=== PATIENT | female | born 1985 | race Caucasian/White ===

== ENCOUNTER 2020-11-06 00:11 | Emergency (ER) | payer BC ==
[2020-11-06] MEDS ORDERED: diphenhydrAMINE 25 MG Cap PO ONE (00:32)
--- NOTE | 2020-11-06 00:34 | EDM.PDOC ---
ED HPI GENERAL MEDICAL PROBLEM - General Chief Complaint: Allergic Reaction Stated Complaint: REACTION TO MEDS Time Seen by Provider: 11/06/20 00:29 Source of Information: Reports: Patient, RN Notes Reviewed History Limitations: Reports: No Limitations - History of Present Illness INITIAL COMMENTS - FREE TEXT/NARRATIVE: 35-year-old female presents emergency department with a complaint of allergic reaction, she is complaining of itchiness as well as some scratchiness in the back of her throat no difficulty breathing she restarted medications of prednisone a azithromycin she has a history of recent diagnosis of pneumonia does use albuterol yesterday when she took her albuterol neb after taking these medications she felt a little bit off but no reaction like today she took the meds this morning and then approximately 12 hours later now she has a reaction Treatments 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: Other (see below) Other Treatments CHIROPRACTIC ASSISTANT: Benadryl 10mg - Related Data Allergies Allergy/AdvReac Type Severity Reaction Status Date / Time No Known Allergies Allergy Verified 11/06/20 00:23 Home Meds: Home Meds Albuterol Sulfate [Albuterol Sulfate Hfa] 8.5 gm IH ASDIRECTED 11/06/20 [History] Azithromycin 250 mg PO DAILY 11/06/20 [History] predniSONE [Prednisone] 10 mg PO BID 11/06/20 [History] Past Medical History 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: Dysfunctional Uterine Bleeding, , Spontaneous Endocrine/Metabolic History: Reports: Obesity/BMI 30+ Dermatologic History: Reports: Cellulitis - Infectious Disease History Infectious Disease History: Reports: Chicken Pox - Past Surgical History HEENT Surgical History: Reports: Adenoidectomy, Tonsillectomy Female Surgical History: Reports: D&C Social & Family History - Tobacco Use Tobacco Use Status *Q: Never Tobacco User - Caffeine Use Caffeine Use: Reports: Coffee - Recreational Drug Use Recreational Drug Use: No ED ROS ALLERGIC REACTION - Review of Systems Review Of Systems: See Below Constitutional: Reports: No Symptoms HEENT: Reports: Throat Swelling Respiratory: Reports: No Symptoms Cardiovascular: Reports: No Symptoms GI/Abdominal: Reports: No Symptoms ED EXAM GENERAL NO PERIP PULSE - Physical Exam Exam: See Below Exam Limited By: No Limitations General Appearance: Alert, WD/WN, No Apparent Distress Throat/Mouth: Normal Inspection, Normal Lips, Normal Teeth, Normal Gums, Normal Oropharynx, Normal Voice, No Airway Compromise Neck: Normal Inspection, Supple, Non-Tender, Full Range of Motion Respiratory/Chest: No Respiratory Distress, Lungs Clear, Normal Breath Sounds, No Accessory Muscle Use, Chest Non-Tender Cardiovascular: Regular Rate, Rhythm, No Murmur Course - Vital Signs Last Recorded V/S: Last Vital Signs Temp 97.5 F 11/06/20 00:28 Pulse 81 11/06/20 00:28 Resp 16 11/06/20 00:28 BP 117/74 11/06/20 00:28 Pulse Ox 98 11/06/20 00:28 - Orders/Labs/Meds Meds: Medications Discontinued Medications Generic Name Dose Route Start Last Admin Trade Name Emerita PRN Reason Stop Dose Admin Diphenhydramine HCl 50 mg 11/06/20 00:32 11/06/20 00:36 Benadryl PO 11/06/20 00:33 50 mg ONETIME ONE Administration Departure - Departure Time of Disposition: 01:05 Disposition: Home, Self-Care 01 Condition: Fair Clinical Impression: Allergic reaction Qualifiers: Encounter type: initial encounter Qualified Code(s): T78.40XA - Allergy, unspecified, initial encounter - Discharge Information Instructions: Allergies, Adult, [id number], Anaphylactic Reaction, Adult Referrals: PCP,None [Primary Care Provider] - Forms: ED Department Discharge Additional Instructions: Recommend stop using the albuterol unless needed to stop the prednisone, complete the course of azithromycin but recommend taking 25 mg of Benadryl 30 minutes prior to taking that medication, please followup with your primary care provider in 3-5 days if not better, please call return to the emergency department with worsening of symptoms. Sepsis Event Note (ED) - Evaluation Sepsis Screening Result: No Definite Risk - Focused Exam Vital Signs: Vital Signs Temp Pulse Resp BP Pulse Ox 11/06/20 00:28 97.5 F 81 16 117/74 98 - Assessment/Plan Plan: Assessment Acuity = acute Site and laterality = allergic reaction Etiology = unknown possible medication Manifestations = pruritus now resolved Location of injury = Home Lab values = none Plan She is on combination prednisone albuterol and azithromycin she is going to stop the prednisone and the albuterol she has 3 doses left of the azithromycin she is to take 25 mg of Benadryl 30 minutes prior to taking the antibiotics. Continue to follow-up with your primary care as needed This note was dictated using [employer] voice recognition software please call with any questions on syntax or grammar.
== END 2020-11-06 01:11 | disposition home or self-care (01) ==
LOC: JP.ED 00:11
DX: T78.40XA Allergy, unspecified, initial encounter (principal); E66.9 Obesity, unspecified; Z68.42 Body mass index [BMI] 45.0-49.9, adult
CPT/HCPCS: 99282; 99283; A9270-GY